=== PATIENT | female | born 1990 | race Caucasian/White ===

== ENCOUNTER 2017-01-14 08:57 | Inpatient (IN) | payer MEDICAID ==
--- NOTE | 2017-01-14 09:46 | PROGRESS NOTE:Antepartum ---
Assessment and Plan - Date of Encounter Date of Encounter: 01/14/17 (1) Supervision of normal first in third trimester Status: Acute Assessment and plan: HEalthy Term . GBS Neg, Plan expectant management. Current Visit: Yes (2) Residence remote from hospital or health care facility Status: Acute Current Visit: Yes - Time Spent With Patient Total time spent with greater than 50% in coordination of care (as documented) at patient's floor/unit and/or counseling patient: FORENSIC SPECIALIST: Antepartum PN Subj - Subjective Interval history: 24 TAB x 1 at 39 3/ and EDC of 01/18/17 by certain LMP of 04/13/16 and confirmed with 7 week U/S. PT began having ctx at 7am and q 2-3 minutes. No leaking of fluids. No bleeding. Good movement. This complicated by transfer of care at 31 weeks from [place]. She had care in [place]. GBS NEg, AB+, Ab screen Neg, RI, GC/CT neg, RPR NR , H/H 13.8/40.8, HIV NR, Hep B neg, 1 hr GTT 106, Adacel 12/22/16 PMHx Depression 6490-4093 and hospitalized, none since PSHx D&C at 6 weeks, Viktor Knee scopes Meds PNV, Freda's ALL: Sulfa causes Hives SHX: No TOB, ETOH, MJ, Moved from [place] due to Politics, to [place] [facility]X; Healthy Patient reports: appetite normal, voiding normally, pain well controlled Antepartum ROS: contractions (q 2-3), movement normal, no vaginal bleeding , no loss of fluid, no headache, no swelling FORENSIC SPECIALIST: Antepartum PN Obj Exam - Exam Heart Monitor: category I Lungs: Bilateral: normal Heart Rhythm: Present: regular Extremities: Absent: edema Cervical Dilatation Degree: 4 Cervical Effacement Percentage: 80 Station: 0
[2017-01-14] MEDS ORDERED: OXYTOCIN/NORMAL SALINE 30 UNIT/500 ML BAG IV SCH (10:13)
[2017-01-14] MEDS ORDERED: MISOPROSTOL 200 MCG TABLET PO PRN (10:13)
[2017-01-14] MEDS ORDERED: HOME MEDICATION LIST NEEDED 1 EA EACH MC ONE (10:13)
[2017-01-14] MEDS ORDERED: FENTANYL 100 MCG/2 ML VIAL IV PRN (10:13)
[2017-01-14] MEDS ORDERED: ONDANSETRON HCL 4 MG/2 ML VIAL IV PRN (10:13)
[2017-01-14 10:23] LABS: BASOPHIL# 0.1 X 10^3uL (0.0-0.1); BASOPHILS 0.7 % (0.0-2.0); EOSINOPHILS 0.1 % (0.0-6.0); HEMATOCRIT 44.3 % (36.0-48.0); HEMOGLOBIN 14.9 g/dL (12.0-16.0); LYMPHOCYTES 16.4 % (20.0-40.0); LYMPHOCYTES# 1.7 X 10^3uL (0.8-3.8); MEAN CELL VOLUME 88.9 fL (80.0-100.0); MEAN CORPUS. HGB CONCENTRATION 33.7 g/dL (32.0-36.0); MEAN CORPUSCULAR HEMOGLOBIN 29.9 pg (29.0-35.0); MEAN PLATELET VOLUME 11.7 fL (7.4-10.4); MONOCYTES 8.2 % (2.0-10.0); MONOCYTES# 0.9 X 10^3uL (0.2-1.0); NEUTROPHILS 74.6 % (54.0-75.0); NEUTROPHILS# 7.9 X 10^3uL (2.6-6.7); PLATELET COUNT 181 X 10^3uL (130-440); RED BLOOD COUNT 4.98 X 10^6uL (4.20-6.10); RED CELL DISTRIBUTION WIDTH 11.9 % (11.5-14.5); WHITE BLOOD COUNT 10.6 X 10^3uL (3.9-10.7)
--- NOTE | 2017-01-14 10:49 | PROGRESS NOTE:Antepartum ---
Assessment and Plan - Date of Encounter Date of Encounter: 01/14/17 (1) Supervision of normal first in third trimester Status: Acute Assessment and plan: HEalthy Term . GBS Neg, Plan expectant management. Current Visit: Yes (2) Residence remote from hospital or health care facility Status: Acute Current Visit: Yes - Time Spent With Patient Total time spent with greater than 50% in coordination of care (as documented) at patient's floor/unit and/or counseling patient: LIFE INSURANCE UNDERWRITER: Antepartum PN Subj - Subjective Interval history: Pt declines pain meds. Starting to get scant bloody show. CTX q 2-3. Patient reports: appetite normal, voiding normally, pain well controlled Antepartum ROS: vaginal bleeding (scant), contractions (q 2-3), movement normal, no loss of fluid, no headache, no swelling LIFE INSURANCE UNDERWRITER: Antepartum PN Obj Exam - Latest Vital Signs and I&O Latest Vital Signs/I&O: Vital Signs Temp 36.3 C L 01/14/17 09:00 Pulse 57 L 01/14/17 09:00 Resp 16 01/14/17 09:00 BP 125/77 01/14/17 09:00 Pulse Ox 94 01/14/17 09:00 Intake & Output 01/13/17 01/14/17 01/14/17 17:59 05:59 17:59 Output Total 200 Balance -200 Weight 65.771 kg Output: Emesis 200 Other: Urine Appearance Clear Urine Color Yellow - Exam Heart Monitor: category I Lungs: Bilateral: normal Heart Rhythm: Present: regular Extremities: Absent: edema Cervical Dilatation Degree: 5 Cervical Effacement Percentage: 90 Station: -2
[2017-01-14 13:16] LABS: ANTIBODY SCREEN NEGATIVE
[2017-01-14 13:17] LABS: ABO GROUP TYPE AB; RH TYPE POSITIVE
[2017-01-14] MEDS ORDERED: LIDOCAINE HCL/PF 1% 30 ML VIAL ONE (13:58)
[2017-01-14] MEDS ORDERED: BENZOCAINE/LANOLIN/ALOE 1 SPRAY BOTTLE TOPICAL ONE (14:48)
--- NOTE | 2017-01-14 15:48 | PROCEDURE NOTE: Vaginal Del ---
OB Procedure Vaginal Delivery - Vaginal Delivery Estimated Gestational Age (weeks): 39 Delivery Presentation: vertex Delivery Position: DARNELL Heart Monitor: category I Heart Monitor comment: Via intermittent doppler Intrapartum Events: none Delivery Induction: none Amniotic Fluid: clear Delivery Monitor: external FHT (intermittent doppler) Delivery Method: Shoulders: without difficulty Placenta delivered: yes Delivery Placenta: spontaneous Delivery Cord: 3 Vessels Nuchal Cord # of Loops: 0 Cord clamped: Yes Cord blood obtained: Yes Episiotomy: none Delivery Laceration: labia laceration (Left superior labia minora transected), 2nd degree Suture Type for Laceration Repair: 3.0 Vicryl at 1 minute: 8 at 5 minutes: 9 Gender: Male Estimate Blood Loss Delivery: 200cc Anesthesia: Local Patient tolerated procedure: well, no complications Delivery Complications: Present: none Additional comments: 26 yo G2Po at 39 3/7 presented with active labor onset at 7 AM. She was 4 cm upon arrival. She progressed to complete over 6-7 hours. She had a CAT I tracing followed by intermittent doppler. She ruptured sometime around 1 pm about 1 hour PTD while in [facility]. Fluid was clear. She declined anesthesia. Mom pushed 30 minutes. Baby delivered over intact perineum. Hand present at baby's neck. Baby placed on abdomen for dry and stim. Bulb suction on abd. Second degree midline and left labial transection repaired with 3.0 vicryl after lidocaine local. Placenta delivered 20 min after baby. Intact with 3VC. No complications.
[2017-01-14] MEDS ORDERED: BENZOCAINE/LANOLIN/ALOE 1 SPRAY BOTTLE TOPICAL PRN (15:54)
[2017-01-14] MEDS ORDERED: WITCH HAZEL 1 EACH MED..PAD TOPICAL PRN (15:54)
[2017-01-14] MEDS ORDERED: MAGNESIUM HYDROXIDE 30 ML UDC PO PRN (15:54)
[2017-01-14] MEDS ORDERED: ACETAMINOPHEN 325 MG TABLET PO PRN (15:54)
[2017-01-14] MEDS ORDERED: LANOLIN CREAM 1 APP/7 GM TUBE TOPICAL PRN (15:54)
[2017-01-14] MEDS ORDERED: DIPHENHYDRAMINE 25 MG CAPSULE PO PRN (15:54)
[2017-01-14] MEDS ORDERED: HC ACETATE/PRAMOXINE HCL FOAM 1 APPLIC APP RC PRN (15:54)
[2017-01-14] MEDS: IBUPROFEN 600 MG TABLET PO PRN (16:34)
[2017-01-14] MEDS: DOCUSATE SODIUM 100 MG CAPSULE PO SCH (21:30)
[2017-01-15] MEDS: IBUPROFEN 600 MG TABLET PO PRN ×2 (01:15→08:33)
[2017-01-15 06:52] LABS: HEMATOCRIT 40.5 % (36.0-48.0); HEMOGLOBIN 13.4 g/dL (12.0-16.0)
[2017-01-15] MEDS: DOCUSATE SODIUM 100 MG CAPSULE PO SCH (08:33)
--- NOTE | 2017-01-15 10:04 | PROGRESS NOTE:Vaginal Delivery ---
Assessment and Plan - Date of Encounter Date of Encounter: 01/15/17 (1) care following vaginal delivery Status: Acute Assessment and plan: Doing well, continue routine care, discharge when baby cleared for D/C. Current Visit: Yes - Time Spent With Patient Total time spent with greater than 50% in coordination of care (as documented) at patient's floor/unit and/or counseling patient: PROOF PRESS OPERATOR: Vag Del PN Subjective Interval history: Denies issues since delivery Patient reports: appetite normal, voiding normally, pain well controlled [place]: doing well, nursing well PROOF PRESS OPERATOR: Vag Del PN Obj Exam - Latest Vital Signs and I&O Latest Vital Signs/I&O: Vital Signs Temp 37.0 C 01/15/17 04:00 Pulse 68 01/15/17 04:00 Resp 16 01/15/17 04:00 BP 112/77 01/15/17 04:00 Pulse Ox 92 01/15/17 04:00 Intake & Output 01/14/17 01/15/17 01/15/17 17:59 05:59 17:59 Intake Total 500 Output Total 200 4650 Balance -200 -4150 Weight 65.771 kg Intake: Oral 500 Output: Urine 4400 Emesis 200 250 Other: Urine Appearance Clear Clear Urine Color Yellow Yellow Voiding Method Toilet # Voids 1 - Exam Heart Rhythm: Present: regular Extremities: Absent: tenderness Abdomen: Present: soft Uterus: Present: firm, non tender - Lab Labs: Laboratory Last Values WBC 10.6 X 10^3uL (3.9-10.7) 01/14/17 09:30 RBC 4.98 X 10^6uL (4.20-6.10) 01/14/17 09:30 Hgb 13.4 g/dL (12.0-16.0) 01/15/17 06:35 Hct 40.5 % (36.0-48.0) 01/15/17 06:35 MCV 88.9 fL (80.0-100.0) 01/14/17 09:30 MCH 29.9 pg (29.0-35.0) 01/14/17 09:30 MCHC 33.7 g/dL (32.0-36.0) 01/14/17 09:30 RDW 11.9 % (11.5-14.5) 01/14/17 09:30 Plt Count 181 X 10^3uL (130-440) 01/14/17 09:30 MPV 11.7 fL (7.4-10.4) H 01/14/17 09:30 Neutrophils % 74.6 % (54.0-75.0) 01/14/17 09:30 Lymphocytes % 16.4 % (20.0-40.0) L 01/14/17 09:30 Eosinophils % 0.1 % (0.0-6.0) 01/14/17 09:30 Basophils % 0.7 % (0.0-2.0) 01/14/17 09:30 Neutrophils # 7.9 X 10^3uL (2.6-6.7) H 01/14/17 09:30 Lymphocytes # 1.7 X 10^3uL (0.8-3.8) 01/14/17 09:30 Monocytes 8.2 % (2.0-10.0) 01/14/17 09:30 Monocytes # 0.9 X 10^3uL (0.2-1.0) 01/14/17 09:30 Eosinophils # 0.0 X 10^3uL (0.0-0.4) 01/14/17 09:30 Basophils # 0.1 X 10^3uL (0.0-0.1) 01/14/17 09:30 ABO Group Type ab 01/14/17 09:30 Rh Factor Positive 01/14/17 09:30 Antibody Screen Negative 01/14/17:30
[2017-01-15 11:41] VITALS: RESP 18
[2017-01-15 12:52] VITALS: BP 117/82; PULSE 80; TEMP 98.1; O2SAT 93
--- NOTE | 2017-01-15 15:55 | DC SUMMARY: Obstetrical/GYN ---
Discharge Summary: Surg/OB Provider: Date of Admission: 01/14/17 Admitting Provider: MARY JO CARDENAS MD Attending Provider: MARY JO CARDENAS MD Discharging Provider: DANNY BREWER MD Primary Care Provider: Discharge Date: 01/15/17 - Diagnosis (1) care following vaginal delivery Status: Acute Hospital Course: Ms. ARTEAGA is a 26 year old female who presented in labor. She had an obstetrically assisted vaginal delivery. Her course was unremarkable and she is discharged to home on the first day at her request. Discharge - Patient/Caregiver Discharge Instructions Activity Level: Pelvic rest. Please note that you and your baby are scheduled to be seen by Dr. Cardenas at the [facility] on WednesdayJanuary 22 at 10:00 Diet: Regular Additional Instructions: Discharge Instructions for Dr. Cardenas 1. Please make a follow up appointment to see me. 2. Contact me in [place] at [phone] or [place] [phone]. 3. You should use Ibuprofen 600 mg, three times a day for pain. If that is inadequate you may be given a narcotic prescription. Narcotics are very constipating and you should use fiber or Colace to prevent constipation if taking them regularly. You should not drive a car while taking narcotics. 4. Take your vitamins as long as you breast feed or for 6 weeks after delivery. 5. If you are not , wear a jog bra or tight bra for 2 weeks to prevent milk production. Wear this both night and day. If you are having pain , use ice packs and try not to stimulate your nipples. You may also use Ibuprofen and Tylenol. 6. If you are having troubles with breast feeding including pain or sore nipples please call me. Always remind physicians that you are breast feeding if you receive a new medication prescription. 7. To help prevent complications with : a. Ensure good position and latch b. Ensure feeding on demand c. Empty breasts fully d. Use hand expression to help relieve fullness e. Expose breast engorgement to warm water by shower or basin f. Call if unrelieved or if you have questions [place] : Anita Carter, ___[phone] Jose Garcia, __[phone]___ 8. Bleeding is normal for 2-6 weeks after delivery. It may be heavier when you exercise or do more activity. If it seems heavy or you are passing clots please call me. 9. Use Pads only for bleeding. Do not use Tampons. 10. If I request you take iron to help build your blood counts back up you can get this over the counter. The most common form is Iron Sulfate 325 mg. Take one daily. It is best taken on an empty stomach with orange juice. 11. Do not have intercourse until 4-6 weeks after you delivery or until you quit bleeding. 12. You may shower or take sitz baths in 3 inches of warm water but do not soak in hot tubs or take deep baths until you quit bleeding (about 4-6 weeks). 13. If you had a , do not lift anything heavier than your baby for 2 weeks, and do not drive for 2 weeks. You may shower. You do not need to wear a bandage. A small amount of drainage from the incision is normal but if it seems excessive or the wound is red or painful please call me immediately. 14. Please dont hesitate to call with any questions. Follow up: MARY JO CARDENAS MD [ACTIVE (Staff Physician)] - 01/22/17 10:00 am (Please note that you and your baby are scheduled to be seen by Dr. Cardenas at the [facility]) Overall discharge status: stable Home Medications: Ibuprofen [Motrin] 2 - 3 tab PO Q4H PRN #30 tablet PRN Reason: pain Disposition: HOME, SELF-CARE Obstetrical/PROGRAM STRATEGIST Discharge Exam - Latest Vital Signs and I&O Latest Vital Signs/I&O: Vital Signs Temp 36.7 C 01/15/17 12:00 Pulse 80 01/15/17 12:00 Resp 18 01/15/17 12:00 BP 117/82 01/15/17 12:00 Pulse Ox 93 01/15/17 12:00 Intake & Output 01/14/17 01/15/17 01/15/17 17:59 05:59 17:59 Intake Total 500 Output Total 200 4650 Balance -200 -4150 Weight 65.771 kg Intake: Oral 500 Output: Urine 4400 Emesis 200 250 Other: Urine Appearance Clear Clear Urine Color Yellow Yellow Voiding Method Toilet Toilet # Voids 1 - Exam Heart Rhythm: Present: regular Extremities: Absent: tenderness Abdomen: Present: soft Uterus: Present: firm, non tender Discharge Summary Data - Medication History Medication History: Home Medications Vit/Fe Fumarate/FA [ Rx 1] 1 tab PO DAILY 01/14/17 Inpatient Medications 01/14/17 15:54 Acetaminophen [Tylenol] 650 mg PO Q6H PRN Benzocaine/Lanolin/Aloe [Dermoplast [place]] 1 spray TOPICAL PRN PRN Diphenhydramine [Benadryl] 50 mg PO HS PRN Hc Acetate/Pramoxine HCl Foam [Proctofoam-Hc Foam] 1 applic RC PRN PRN Ibuprofen [Motrin] 600 mg PO Q6H PRN Lanolin Cream [Lansinoh] 1 dangelo TOPICAL PRN PRN Magnesium Hydroxide [Milk of Magnesia] 30 ml PO PRN PRN Witch Zarina [Tucks Take-Alongs] 1 each TOPICAL PRN PRN oxyCODONE HCL IR [Oxy Ir] 5 mg PO Q3H PRN 01/14/17 21:00 Docusate Sodium [Colace] 100 mg PO Q12H Procedures and tests throughout hospitalization: Completed Lab Orders 01/14/17 09:30 ABO GROUP [HEM] Urgent ANTIBODY SCREEN [HEM] Urgent CBC AUTO DIF, MDIF/RMOR IF IND [HEM] Urgent RH TYPE [HEM] Urgent 01/15/17 06:35 HGB & HCT PANEL [HEM] AMDRAW Pending Orders 01/14/17 10:13 Admit: Inpatient Routine Insert Morrell Catheter PRN 01/14/17 15:54 May shower TOLERATED Post Assessment PER PROTOCOL Vital Signs Q15MX4,Q30MX2,Q1HX2,Q4H Acetaminophen [Tylenol] 650 mg PO Q6H PRN Benzocaine/Lanolin/Aloe [Dermoplast [place]] 1 spray TOPICAL PRN PRN Diphenhydramine [Benadryl] 50 mg PO HS PRN Hc Acetate/Pramoxine HCl Foam [Proctofoam-Hc Foam] 1 applic RC PRN PRN Ibuprofen [Motrin] 600 mg PO Q6H PRN Lanolin Cream [Lansinoh] 1 dangelo TOPICAL PRN PRN Magnesium Hydroxide [Milk of Magnesia] 30 ml PO PRN PRN Witch Zarina [Tucks Take-Alongs] 1 each TOPICAL PRN PRN oxyCODONE HCL IR [Oxy Ir] 5 mg PO Q3H PRN 01/14/17 21:00 Docusate Sodium [Colace] 100 mg PO Q12H 01/14/17 Dinner Regular [DIET] 01/15/17 Lunch Special Meal (NLC) Labs on day of discharge: Labs from last 24 hours 01/15/17 06:35 Hgb 13.4 Hct 40.5
== END 2017-01-15 16:50 | disposition home or self-care (01) | DRG 775 ==
LOC: NLCPRO 08:57 → NLC 09:00
PROVIDERS: ADMIT Family Medicine; ATTEND Family Medicine
PROC: 0KQM0ZZ Repair Perineum Muscle, Open Approach (ICD-10-PCS; principal; 2017-01-14)
PROC: 10E0XZZ Delivery of Products of Conception, External Approach (ICD-10-PCS; principal; 2017-01-14)
DX: O70.1 Second degree perineal laceration during delivery (principal); Z3A.39 39 weeks gestation of pregnancy; Z37.0 Single live birth
CPT/HCPCS: 85014; 85018; 85025; 86850; 86900; 86901